=== PATIENT | female | born 1980 | race Caucasian/White ===

== ENCOUNTER 2018-03-14 12:59 | Emergency (ER) | payer OTHER ==
[~2018-03-14] VITALS: Ht 162.6 cm; Wt 59.0 kg
[~2018-03-14 12:59] MED LIST: DOXYCYCLINE 10100 M1 PO; FLEXERIL PO; LOESTRIN 24 FE1 EACH PO
[2018-03-14] MEDS ORDERED: KEFLEX500 M1 PO (14:23)
[2018-03-14 14:30] VITALS: BP 113/75
== END 2018-03-14 14:31 | disposition home or self-care (01) ==
LOC: M.ERS 12:59
DX: S01.81XA Laceration without foreign body of other part of head, initial encounter (principal); W18.39XA Other fall on same level, initial encounter; Y93.89 Activity, other specified; Y92.89 Other specified places as the place of occurrence of the external cause; Y99.8 Other external cause status

== ENCOUNTER → 2021-06-24 | Outpatient (CLI) | payer OTHER ==
[~2021-06-24] MED LIST changes: +KEFLEX500 M1 PO
== END ==
LOC: M.LAB 07:55
PROVIDERS: ATTEND Podiatrist Foot Surgery
DX: Z01.812 Encounter for preprocedural laboratory examination (principal); Z20.822 Contact with and (suspected) exposure to COVID-19